=== PATIENT | female | born 2000 | race Caucasian/White ===

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

== ENCOUNTER 2019-03-30 11:16 | Emergency (ER) | payer MEDICAID, OTHER ==
[~2019-03-30] VITALS: Ht 160 cm; Wt 52.3 kg
[~2019-03-30 11:16] MED LIST changes: -SULF1TAB49 PO
[2019-03-30 11:42] VITALS: BP 150/89
== END 2019-03-30 13:09 | disposition home or self-care (01) ==
LOC: ER 11:16
DX: S50.02XA Contusion of left elbow, initial encounter (principal); Z79.899 Other long term (current) drug therapy; Y04.8XXA Assault by other bodily force, initial encounter; Y93.89 Activity, other specified; Y92.89 Other specified places as the place of occurrence of the external cause; Y99.8 Other external cause status
CPT/HCPCS: 73080; 99283